=== PATIENT | female | born 1990 | race Caucasian/White ===

== ENCOUNTER 2018-09-17 11:23 | Outpatient (REF) | payer BC, SELFPAY ==
[2018-09-17 13:46] LABS: C-Reactive Protein 0.43 mg/dL (0.0-0.3)
[2018-09-17 14:38] LABS: ESR 15 MM/HR (0-20)
[2018-09-18 11:18] LABS: Rheumatoid Factor <8 IU/mL (<12.5)
[2018-09-18 12:08] LABS: ANA Interpretation Negative (NEGAT)
== END 2018-09-17 11:43 ==
LOC: NCHCN 11:23
PROVIDERS: PCP Nurse Practitioner; Visit Provider Nurse Practitioner Family
DX: M79.641 Pain in right hand (principal)
CPT/HCPCS: 85652; 86038; 86140; 86431

== ENCOUNTER 2018-09-17 11:50 | Outpatient (CLI) | payer BC, SELFPAY ==
--- NOTE | 2018-09-17 11:40 | DI.RAD_ITS ---
SYMPTOMS/DIAGNOSIS: RT HAND PAIN, M79.641 RIGHT HAND: The bones are normally mineralized. No significant degenerative changes or bony erosions are seen. IMPRESSION: Negative right hand.
== END 2018-09-17 12:10 ==
PROVIDERS: PCP Nurse Practitioner; Visit Provider Nurse Practitioner Family
DX: M79.641 Pain in right hand (principal)
CPT/HCPCS: 73130

== ENCOUNTER 2019-06-19 13:01 | Outpatient (REF) | payer BC, SELFPAY ==
--- NOTE | 2019-06-19 11:00 | PAPFT_PTH ---
PATIENT: Valentina Ackerman LOC: [facility]#:[id number] AGE/SX: 29/F ROOM: RE06/19/[address]: Karishma Flowers : 1990 BED: DIS: 06/19/2019 SPEC #: [id number] RECD: 06/19/19 13:10 STATUS: SONIDO REEvelyn #: [id number] CHAD: 06/19/19 11:[address]: Karishma Flowers DEPT: [facility] Cytology RECD BY: Pat Orourke ENTERED: 06/19/19 13:11 SP TYPE: PAPFT OTHR DR: Alexa Fabian Tissues: 1 - CX/ENDOCX FOR PAP SMEARS Procedures: PAP THIN PREP/[facility] Screening HPV DNA PROBE Comments: [id number]
== END 2019-06-19 13:21 ==
LOC: NCHCN 13:01
PROVIDERS: PCP Nurse Practitioner; Visit Provider Nurse Practitioner Family
DX: Z12.4 Encounter for screening for malignant neoplasm of cervix (principal); Z11.51 Encounter for screening for human papillomavirus (HPV)
CPT/HCPCS: 88142; 87624

== ENCOUNTER 2019-08-29 03:53 | Outpatient (CLI) | payer BC, SELFPAY ==
--- NOTE | 2019-08-29 10:30 | DI.MRI_ITS ---
EXAM: MR LUMBAR SPINE WO CLINICAL HISTORY: CHRONIC BACK PAIN M54.89,RECENT INCREASING PAIN, BILAT LEG SYMPTOMS TECHNIQUE: Multiplanar multisequence MRI was performed. COMPARISON: No exams were available for comparison FINDINGS: The T12-L1 through L3-4 levels appear normal. At L4-5, there is partial disc desiccation and mild concentric disc bulging. There is a tiny central annular tear. There are mild facet joint degenerat bety changes with no significant neural foraminal narrowing or central canal stenosis. At L5, there i s partial disc desiccation and mild loss of disc height. There is a left paracentral disc protrusion which may slightly impinge on the left S 1 nerve root. There are mild facet degenerative changes bu t no significant central canal stenosis or neural foraminal narrowing. The marrow signal is normal. The conus medullaris appears intact. The aorta is normal in diameter. IMPRESSION: There is a small left paracentral disc protrusion at L5-S1. Small annular tear centrally at L4-5.
== END 2019-08-29 04:13 ==
PROVIDERS: PCP Nurse Practitioner Family; Visit Provider Nurse Practitioner Family
DX: M54.5 Low back pain (principal); G89.29 Other chronic pain; M51.27 Other intervertebral disc displacement, lumbosacral region; M47.817 Spondylosis without myelopathy or radiculopathy, lumbosacral region
CPT/HCPCS: 72148

== ENCOUNTER 2023-03-06 18:13 | Outpatient (REF) | payer OTHER, SELFPAY ==
[2023-03-06 15:24] LABS: HCT 36.9 % (36.0-46.0); HGB 12.9 g/dL (11.2-15.7); MCV 92 fL (80-95); MPV 11.3 fL (8.0-11.0); Platelet Count 180 10^3/uL (130-400); RBC 4.03 10^6/uL (3.93-5.22); RDW 11.5 % (11.7-14.6); RDW-SD 39.3 fL; WBC 6.43 10^3/uL (4.4-10.8)
[2023-03-06 16:24] LABS: ALT 24 U/L (14-59); AST 14 U/L (15-37); Albumin 4.2 g/dL (3.4-5.0); Alkaline Phosphatase 54 U/L (46-116); BUN 12 mg/dL (7-18); Bilirubin, Total 0.5 mg/dL (0.2-1.0); CREATININE 0.7 mg/dL (0.55-1.02); Calcium 8.8 mg/dL (8.5-10.1); Chloride 102 mmol/L (98-107); Estimated GFR 115.59 (mL/min/1.73m2); Glucose 95 mg/dL (74-106); Potassium 4.2 mmol/L (3.5-5.1); Sodium 138 mmol/L (136-145); Total Protein 7.8 g/dL (6.4-8.2)
== END 2023-03-06 18:14 | disposition home or self-care (01) ==
LOC: NCHCN 18:13
PROVIDERS: PCP Nurse Practitioner Family; Visit Provider Nurse Practitioner Family
DX: Z00.00 Encounter for general adult medical examination without abnormal findings (principal); Z13.0 Encounter for screening for diseases of the blood and blood-forming organs and certain disorders involving the immune mechanism; Z13.228 Encounter for screening for other metabolic disorders
CPT/HCPCS: 80053; 85027

== ENCOUNTER 2024-03-07 14:38 | Outpatient (REF) | payer OTHER, SELFPAY ==
--- NOTE | 2024-03-07 10:23 | PAPFT_PTH ---
PATIENT: Valentina Ackerman LOC: [facility]#:[id number] AGE/SX: 34/F ROOM: RE03/07/[address]: Linda Milton : 1990 BED: DIS: 03/07/2024 SPEC #: [id number] RECD: 03/10/24 13:33 STATUS: SONIDO REEvelyn #: [id number] CHAD: 03/07/24 10:[address]: Linda Milton DEPT: [facility] Cytology RECD BY: Pat Orourke ENTERED: 03/10/24 13:34 SP TYPE: PAPFT OTHR DR: Karishma Flowers Tissues: 1 - CX/ENDOCX FOR PAP SMEARS Procedures: PAP THIN PREP/[facility] Screening HPV DNA PROBE Comments: [id number]
== END 2024-03-07 14:39 | disposition home or self-care (01) ==
LOC: NCHCN 14:38
PROVIDERS: PCP Nurse Practitioner Family; Visit Provider Nurse Practitioner Family
DX: Z00.00 Encounter for general adult medical examination without abnormal findings (principal); Z12.4 Encounter for screening for malignant neoplasm of cervix; Z01.419 Encounter for gynecological examination (general) (routine) without abnormal findings
CPT/HCPCS: 88142; 87624

== ENCOUNTER 2025-03-18 13:29 | Outpatient (REF) | payer OTHER, SELFPAY ==
[2025-03-18 21:43] LABS: Abs Immature Grans 0.02 10^3/uL (0.0-0.06); Absolute Basophil Count 0.04 10^3/uL (0.0-0.2); Absolute Eosinophil Count 0.05 10^3/uL (0.0-0.7); Absolute Lymphocyte Count 2.08 10^3/uL (1.2-3.4); Absolute Monocyte Count 0.58 10^3/uL (0.1-0.8); Absolute Neutrophil Count 5.35 10^3/uL (1.2-6.7); Basophils % 0.5 %; Eosinophils % 0.6 %; HCT 36.5 % (36.0-46.0); HGB 12.4 g/dL (11.2-15.7); Immature Grans % 0.2 %; Lymphocytes % 25.6 %; MCH 31.9 pg (27.0-33.0); MCV 94 fL (80-95); MPV 11.4 fL (8.0-11.0); Monocytes % 7.1 %; Platelet Count 218 10^3/uL (130-400); RBC 3.89 10^6/uL (3.93-5.22); RDW 11.9 % (11.7-14.6); RDW-SD 41.1 fL; WBC 8.12 10^3/uL (4.4-10.8)
[2025-03-18 22:16] LABS: Iron 92 ug/dL (50-170); Total Iron Binding Capacity 274 ug/dL (250-450); Transferrin Sat 34 % (15-50)
[2025-03-18 22:28] LABS: ALT 28 U/L (14-59); AST 16 U/L (15-37); Alkaline Phosphatase 60 U/L (46-116); Anion Gap 6.1 mmol/L (3-11); BUN 12 mg/dL (7-18); Bilirubin, Total 0.5 mg/dL (0.2-1.0); CO2 28.9 mmol/L (21.0-32.0); CREATININE 0.5 mg/dL (0.55-1.02); Calcium 9.1 mg/dL (8.5-10.1); Calculated LDL 80 mg/dL (<100); Chloride 103 mmol/L (98-107); Cholesterol 161 mg/dL (<200); Estimated GFR 123.81 (mL/min/1.73m2); Ferritin 35 ng/mL (8-252); Glucose 91 mg/dL (74-106); HDL Cholesterol 60 mg/dL (>or=50); Potassium 4.2 mmol/L (3.5-5.1); Sodium 138 mmol/L (136-145); TSH (W/Ref FT4) 1.27 uIU/mL (0.36-3.74); Total Protein 7.2 g/dL (6.4-8.2); Triglyceride 108 mg/dL (<150)
== END 2025-03-18 13:30 | disposition home or self-care (01) ==
LOC: NCHCN 13:29
PROVIDERS: PCP Nurse Practitioner Family; Visit Provider Nurse Practitioner Family
DX: Z00.00 Encounter for general adult medical examination without abnormal findings (principal); N39.9 Disorder of urinary system, unspecified
CPT/HCPCS: 80053; 80061; 82728; 83540; 83550; 84443; 85025